=== PATIENT | female | born 1960 | race Caucasian/White ===

== ENCOUNTER 2024-07-21 12:58 | Emergency (ER) | payer SELFPAY ==
--- NOTE | ~2024-07-21 | XR_ITS ---
Right Hand Technique: PA, oblique, and lateral views were obtained. Clinical History: Pain Findings: No acute fracture or dislocation is seen. Osseous alignment is anatomic. Joint spaces are p reserved. Soft tissues are unremarkable. Impression: Unremarkable right hand. Reviewed, dictated and finalized at location M. Impression: Unremarkable right hand.
[2024-07-21 13:14] VITALS: BP 124/69; PULSE 106; RESP 16; TEMP 36.8; O2SAT 96
--- NOTE | 2024-07-21 13:21 | ED_ITS ---
HPI - Extremity Injury (Upper) General Chief Complaint: Extremity Injury, Upper Stated Complaint: Right Hand Finger Pain Time Seen by Provider: 07/21/24 13:00 Source: patient Mode of arrival: ambulatory Limitations: no limitations History of Present Illness HPI narrative: patient is a 64-year-old female who presents with right index finger pain and swelling after shutting in car door yesterday. Does report she pulled her finger out without opening the door and has a small puncture raymundo to palmar side of finger tip. Reports finger has become more swollen and bruised spreading down over MCP joint. Reports pain with movement and mild numbness on tip of finger. Has taken Tylenol and ibuprofen. Did wrap finger but was unable to elevate or ice says she was at work all night. Related Data Home Medications ?Medication ?Instructions ?Recorded ?Confirmed ?Last Taken ?Type carbamazepine 100 mg/5 mL oral 100 mg PO TID 07/29/20 07/29/20 Unknown History suspension diazepam 10 mg tablet (Valium) 10 mg PO DAILY PRN anxiety 07/29/20 07/29/20 Unknown History duloxetine 30 mg capsule,delayed 30 mg PO DAILY 07/29/20 07/29/20 Unknown History release (Cymbalta) meloxicam 15 mg tablet mg 07/21/24 Unknown History oxycodone-acetaminophen 7.5 mg-325 tablet 07/21/24 Unknown History mg tablet tizanidine 2 mg tablet mg 07/21/24 Unknown History Allergies Allergy/AdvReac Type Severity Reaction Status Date / Time Sulfa (Sulfonamide Allergy Unknown Unknown Verified 07/21/24 13:00 Antibiotics) Review of Systems Review of Systems: All systems reviewed & are unremarkable except as noted in HPI and below Constitutional: Constitutional: Denies body ache(s), Denies chills, Denies fatigue, Denies fever(s), Denies headache(s), Denies malaise and Denies weakness Eyes: Eyes: Denies blurry vision, Denies irritation and Denies loss of vision ENT: Denies otalgia, Denies headache(s), Denies nasal discharge, Denies sinus pain and Denies sore throat Cardiovascular: Cardiovascular: Denies chest pain, Denies irregular heart rhythm and Denies dyspnea Respiratory: Respiratory: Denies dyspnea Gastrointestinal: Gastrointestinal: Denies abdominal pain, Denies melena, Denies hematochezia, Denies diarrhea, Denies nausea and Denies vomiting Musculoskeletal: Musculoskeletal: Denies back pain, Denies myalgias, Reports arthralgias and Reports joint swelling Integumentary/Breasts: Skin/Breast: Denies pruritus and Denies rash Neurologic: Denies headache(s), Denies loss of vision and Denies weakness Psychiatric: Psychiatric: Reports no additional psychiatric complaints Endocrine: Endocrine: Denies fatigue PMFSH Social History Social History Smoking packs per day: 1 Smoking cigarettes per day: 20.0 Smoking status: Current every day smoker Alcohol intake: never Comments At time of signature, agree with nursing past medical, surgical, social and family history. There is no relevant family history pertinent to the presenting complaint. Exam Const: General: cooperative, healthy appearing, comfortable, no acute distress and well nourished Nutritional Appearance: well nourished Orientation/consciousness: patient oriented x3 Limitations: no limitations HENMT: Head: normal to inspection, normocephalic and atraumatic Ears: hearing grossly normal bilaterally and external ears normal Face/Nose/Sinus: Normal external nose present, normal facial exam and face symmetric Face and sinus: normal facial exam and face symmetric Mouth: Yes lip normal Eyes: General: appearance normal, both eyes and all related structures Alignment and Position: alignment normal and position normal Periorbital: periorbital findings normal Eyelids: eyelids normal Pupils: Equal, round and reactive pupils present EOM: EOMs intact bilaterally Neck: Neck: normal visual inspection, full ROM and supple Chest: Chest palpation & inspection: normal inspection of the chest Resp: Effort & Inspection: normal respiratory effort and able to speak in complete sentences Auscultation: clear to auscultation bilaterally Cardio: Rate: tachycardic Rhythm: regular rhythm Heart sounds: S1 normal heart sound present and S2 normal heart sound present GI: Inspection: normal to inspection Skin: General skin exam: normal color and no rashes or lesions noted Neuro: General: patient oriented x3 and moves all extremities Cranial nerves: Yes Equal, round and reactive pupils present Speech: normal speech Gait exam (Neuro): Normal gait present Extrem: General: normal to inspection, full ROM and no edema Right upper extremity: wrist normal to inspection, normal ROM, normal vascular exam and radial pulse present; no tenderness and no swelling and Extremity exam: right hand normal to inspection, normal capillary refill, neuromotor exam normal wrist extension normal, thumb opposition normal, thumb IP flexion normal, thumb ADduction normal and fingers 2-5 ABduction normal, neurosensory exam normal radial nerve sensory function normal, ulnar nerve sensory function normal and median nerve sensory function normal, neurosensory exam abnormal digital nerve sensory function normal in the 2nd digit (distal tip), tendon exam normal of the thumb, of the 3rd digit, of the 4th digit and of the 5th digit, tendon exam abnormal function limited secondary to pain (index finger), tenderness of the 2nd digit involving the entire digit, vascular exam radial pulse present and normal capillary refill, abnormal ROM of finger pain with active ROM of the 2nd digit, swelling of the 2nd digit involving the entire digit and ecchymosis of the 2nd digit involving the entire digit; no unusual warmth Psych: Appearance: grossly normal and well kempt Mental Status: mental status grossly normal Speech and movement: Normal speech and movement present Affect: normal affect Attitude: cooperative Thought process: Normal thought process present Course Course Emergency Course: Patient is aware of diagnosis, understands and agrees to treatment plan. Anticipatory guidance given. Patient agrees to follow-up as directed and is aware of reasons to seek care at the emergency department. Portions of this record may have been created with voice recognition software Level of Care: Express Care Visit Vital Signs Vital signs: Vital Signs Temperature 36.8 C 07/21/24 13:14 Pulse Rate 106 H 07/21/24 13:14 Respiratory Rate 16 07/21/24 13:14 Blood Pressure 124/69 07/21/24 13:14 Pulse Oximetry 96 07/21/24 13:14 Oxygen Delivery Room Air 07/21/24 13:14 Temperature 36.8 C 07/21/24 13:14 Pulse Rate 106 H 07/21/24 13:14 Respiratory Rate 16 07/21/24 13:14 Blood Pressure 124/69 07/21/24 13:14 Pulse Oximetry 96 07/21/24 13:14 Oxygen Delivery Room Air 07/21/24 13:14 Reviewed MDM - Extremity Injury (Upper) MDM Narrative Medical decision making narrative: metal finger splint applied. Discussed red flag symptoms including finger feeling cool to touch, turned bluish in color or having decreased cap refill. Patient offered tetanus shot and declined. Pt well hydrated appearing, in no respiratory distress, hemodynamically stable. Recommend supportive care. The patient is stable at time of discharge the clinical impression was discussed and the patient was given the opportunity to ask questions, which were addressed as completely as possible given the information available at present. Anticipatory guidance and return to care precautions were discussed and the importance of primary care follow-up was stressed and encouraged. The patient voiced understanding of the plan, indications to return, and the need for follow-up. Exam findings show no acute concerns or changes Patient is appropriate for outpatient treatment and follow-up. Differential Diagnosis Differential diagnosis: Likely finger sprain, dislocation of finger, fracture of hand and other ( finger Fracture, less likely compartment syndrome, gout) Medical Records Attestation: I reviewed the patient's medical records. Imaging Data Radiologist's impression: Right Hand Technique: PA, oblique, and lateral views were obtained. Clinical History: Pain Findings: No acute fracture or dislocation is seen. Osseous alignment is anatomic. Joint spaces are preserved. Soft tissues are unremarkable. Impression: Unremarkable right hand. Discharge Plan Discharge Clinical Impression: Finger sprain Qualifiers: Encounter type: initial encounter Finger: index finger Sprain of finger site: interphalangeal joint Laterality: right Qualified Code(s): S63.630A - Sprain of interphalangeal joint of right index finger, initial encounter Patient Disposition: Home Condition: Stable Instructions: Finger Sprain (ED) Additional Instructions: Xray showed no fracture. Minimize activities that aggravate the condition The RICE protocol. Follow the RICE protocol as soon as possible after your injury:. Ice should be immediately applied to keep the swelling down. It can be used for 20 to 30 minutes, three or four times daily. Do not apply ice directly to your skin. Compression dressings, bandages or manda-wraps will immobilize and support your injured finger. Elevate your finger above the level of your heart as often as possible during the first 48 hours. Medication: Nonsteroidal anti-inflammatory drugs (NSAIDs) such as ibuprofen and naproxen can help control pain and swelling. Because they improve function by both reducing swelling and controlling pain, they are a better option for mild sprains than narcotic pain medicines. Please schedule a follow-up visit with your personal physician for further evaluation and treatment within 1week OR If your symptoms persist, change or worsen significantly before you can contact your personal physician then please, without delay, go to the emergency department for further evaluation. If you have any signs of finger becoming cold, blue discoloration or delayed capillary refill go straight to the ED. Patient Language: Romansh Prescriptions: No Action tizanidine 2 mg tablet meloxicam 15 mg tablet oxycodone-acetaminophen 7.5-325 mg tablet diazepam [Valium] 10 mg tablet 10 mg PO DAILY PRN (Reason: anxiety) duloxetine [Cymbalta] 30 mg capsule,delayed release(DR/EC) 30 mg PO DAILY carbamazepine 100 mg/5 mL suspension 100 mg PO TID duloxetine [Cymbalta] 30 mg capsule,delayed release(DR/EC) 90 mg PO DAILY MDD pain Qty: 30 0RF duloxetine 60 mg capsule,delayed release(DR/EC) 60 mg PO DAILY Qty: 90 0RF morphine 60 mg tablet extended release 60 mg PO Q6H MDD pain Qty: 115 0RF Follow-up/Referrals: Ras Llanos MD [Physician] - 3 Days ( establish care) Stand Alone Forms: Work/School Release IP Time of Disposition: 13:44
== END 2024-07-21 13:50 | disposition home or self-care (01) ==
PROVIDERS: Emergency Provider Nurse Practitioner Family
DX: S63.630A Sprain of interphalangeal joint of right index finger, initial encounter (principal); W23.2XXA Caught, crushed, jammed or pinched between a moving and stationary object, initial encounter; F17.210 Nicotine dependence, cigarettes, uncomplicated; J44.9 Chronic obstructive pulmonary disease, unspecified; F41.9 Anxiety disorder, unspecified; F32.A Depression, unspecified; Z90.89 Acquired absence of other organs
CPT/HCPCS: 29130; 73130; 99213; G0463